=== PATIENT | female | born 1945 | race Caucasian/White ===

== ENCOUNTER → 2017-06-12 | Emergency (ER) | payer OTHER ==
[~2017-06-12] VITALS: Ht 167.6 cm; Wt 104.3 kg
[~2017-06-12] MED LIST: ARMOUR THYROID60 M1; AVALIDE 300-12.1 TAB PO; AVAPRO300 MG; AVAPRO300 MG PO; BETAMETHASONE D60 ML; CALAN 240 MG PO; CARdura 4MG TABLET PO; CLONIDINE HCL0.1 M1; FOLIC ACID1 MG PO; HYDRALAZINE HCL25 MG; HYDRALAZINE HCL25 MG PO; HYDROCHLOROTH12.5 M1 PO; LANTUS SOL100 UNIT/1; LASIX20 MG PO; Lantus 1000 U/10 ML SUBCUTANEO; NABUMETONE500 MG PO; NEURONTIN300 MG; Neurontin PO; OMEPRAZOLE40 MG PO; PERCOCET 5/3251 TAB PO; PRE PROTEIN 2030 ML PO; PRORENAL VITAL1 EACH; PROTONIX40 MG PO; VITAMIN B COMPL1 CAP PO; ZOCOR20 MG; ZYLOPRIM100 M1 PO; [UNRECOGNIZED DRUG - OTHER]
== END | disposition home or self-care (01) ==
LOC: ER 18:21
DX: I10 Essential (primary) hypertension (principal); R51 Headache; Z99.2 Dependence on renal dialysis

== ENCOUNTER 2017-06-14 15:35 | Inpatient (IN) | payer OTHER ==
[~2017-06-14] VITALS: Ht 167.6 cm; Wt 104.3 kg
[~2017-06-14 15:35] MED LIST changes: -ARMOUR THYROID60 M1
[2017-06-15] MEDS ORDERED: ARMOUR THYROID60 M1 (10:27)
[2017-06-18] MEDS ORDERED: HYDRALAZINE HCL50 MG PO (14:25)
[2017-06-18] MEDS ORDERED: LABETALOL HCL100 MG PO (14:27)
== END 2017-06-18 16:30 | DRG 304 ==
LOC: ER 15:35 → ICU-2 18:20
PROC: 4A033R1 Measurement of Arterial Saturation, Peripheral, Percutaneous Approach (ICD-10-PCS; principal; 2017-06-14)
PROC: B246ZZZ Ultrasonography of Right and Left Heart (ICD-10-PCS; 2017-06-17)
DX: I16.9 Hypertensive crisis, unspecified (principal); N18.6 End stage renal disease; I12.0 Hypertensive chronic kidney disease with stage 5 chronic kidney disease or end stage renal disease; E11.22 Type 2 diabetes mellitus with diabetic chronic kidney disease; E03.8 Other specified hypothyroidism; L40.8 Other psoriasis

== ENCOUNTER 2017-07-01 18:41 | Inpatient (IN) | payer OTHER ==
[~2017-07-01] VITALS: Ht 172.7 cm; Wt 113.4 kg
[~2017-07-01 18:41] MED LIST changes: +ARMOUR THYROID60 M1; +HYDRALAZINE HCL50 MG PO; +LABETALOL HCL100 MG PO
[2017-07-09] MEDS ORDERED: ZANTAC150 MG PO (12:21)
[2017-07-09] MEDS ORDERED: CARAFATE1 GM PO (12:22)
[2017-07-09] MEDS ORDERED: PROTONIX40 MG PO (12:22)
[2017-07-09] MEDS ORDERED: ZOFRAN4 MG PO (12:23)
[2017-07-09] MEDS ORDERED: GAS RELIEF125 MG PO (12:24)
== END 2017-07-09 16:49 | disposition home or self-care (01) | DRG 193 ==
LOC: ER 18:41 → SEC-K 22:25 → MEDI 22:25
PROC: 4A033R1 Measurement of Arterial Saturation, Peripheral, Percutaneous Approach (ICD-10-PCS; principal; 2017-07-01)
PROC: 3E0F7GC Introduction of Other Therapeutic Substance into Respiratory Tract, Via Natural or Artificial Opening (ICD-10-PCS; 2017-07-01)
PROC: BW24ZZZ Computerized Tomography (CT Scan) of Chest and Abdomen (ICD-10-PCS; 2017-07-02)
PROC: 4A12X4Z Monitoring of Cardiac Electrical Activity, External Approach (ICD-10-PCS; 2017-07-02)
PROC: 5A1D70Z Performance of Urinary Filtration, Intermittent, Less than 6 Hours Per Day (ICD-10-PCS; 2017-07-04)
DX: J18.9 Pneumonia, unspecified organism (principal); N18.6 End stage renal disease; I12.0 Hypertensive chronic kidney disease with stage 5 chronic kidney disease or end stage renal disease; I16.9 Hypertensive crisis, unspecified; J90 Pleural effusion, not elsewhere classified; B37.0 Candidal stomatitis; R09.02 Hypoxemia; E11.22 Type 2 diabetes mellitus with diabetic chronic kidney disease; Z99.2 Dependence on renal dialysis; E03.8 Other specified hypothyroidism

== ENCOUNTER 2017-09-24 07:49 | Emergency (ER) | payer OTHER ==
[~2017-09-24] VITALS: Ht 157.5 cm; Wt 99.8 kg
[~2017-09-24 07:49] MED LIST changes: +CARAFATE1 GM PO; +GAS RELIEF125 MG PO; +ZANTAC150 MG PO; +ZOFRAN4 MG PO
== END 2017-09-24 15:47 | disposition home or self-care (01) ==
LOC: ER 07:49
DX: R10.11 Right upper quadrant pain (principal)

== ENCOUNTER 2017-09-27 13:55 | Outpatient (CLI) | payer OTHER | END 2017-09-27 13:56 | disposition home or self-care (01) | LOC: RAD 13:55 | DX: M54.6 Pain in thoracic spine (principal) ==

== ENCOUNTER 2018-03-17 03:55 | Inpatient (IN) | payer OTHER ==
[~2018-03-17] VITALS: Ht 167.6 cm; Wt 97.5 kg
--- NOTE | 2018-03-17 04:14 | NUR ---
SE RECIBE PTE ALERTA Y ORIENTADA X3 EN AMBULANCIA QUIEN REFIERE DIFICULTAD RESP DESDE ZACHARY. ES PTE RENAL Y REFIERE LE [facility]. PTE REFIERE NO PADECE DE ASMA O COPD, PTE SATURANDO 93% Y BP MANUAL 230/100. SE LE REALIZA EKG Y SE PRESENTA AL DR CHOWDHURY. PTE SE UBICA EN CAMA ASMA UNI
--- NOTE | 2018-03-17 05:06 | NUR ---
PACIENTE ALERTA Y ORIENTADA X3. EN CAMA EN POSICION SEMI-SENTADA CON BARANDAS ELEVADAS Y INTERCOM ACCESIBLE. MANEJADA POR MIS. [place] QUIEN ORIENTA A PACIENTE SOBRE PROCEDIMIENTO A REALIZAR Y REFIERE ENTENDER. REALIZA MUESTRAS DE LABORATORIO BAJO MEDIDAS ASEPTCAS. CANALIZACION PATENTE Y ANJU DE EDEMA Y ERITEMA. PENDIENTE PLACA PORTABLE. SE NOTIFICO A PERSONAL DE TERAPIA SOBRE LAS MISMA.
[2018-03-19] MEDS ORDERED: AVAPRO300 MG PO (16:09)
[2018-03-19] MEDS ORDERED: LABETALOL HCL100 MG PO (16:09)
[2018-03-19] MEDS ORDERED: ALBUTEROL2.5 MG/3 M IH (16:09)
[2018-03-19] MEDS ORDERED: CLONIDINE HCL0.1 MG PO (16:10)
[2018-03-19] MEDS ORDERED: HYDRALAZINE HCL50 MG PO (16:10)
[2018-03-19] MEDS ORDERED: NeurRONTin 400MG CAP PO (16:10)
[2018-03-19] MEDS ORDERED: Tussi-Organidin Dm-S PO (16:11)
[2018-03-19] MEDS ORDERED: ARMOUR THYROID60 M1 PO (16:12)
[2018-03-19] MEDS ORDERED: LANTUS SOL100 UNIT/1 SUBCUTANEO (16:15)
[2018-03-19] MEDS ORDERED: BETAMETHASONE V60 ML TOP (16:17)
== END 2018-03-19 17:00 | disposition home or self-care (01) | DRG 683 ==
LOC: ER 03:55 → MEDJ 14:10 → SEC-K 14:10 → MEDJ 17:16
PROVIDERS: ADMIT Internal Medicine
PROC: 4A033R1 Measurement of Arterial Saturation, Peripheral, Percutaneous Approach (ICD-10-PCS; principal; 2018-03-17)
PROC: 3E0F7GC Introduction of Other Therapeutic Substance into Respiratory Tract, Via Natural or Artificial Opening (ICD-10-PCS; 2018-03-17)
PROC: 5A1D70Z Performance of Urinary Filtration, Intermittent, Less than 6 Hours Per Day (ICD-10-PCS; 2018-03-17)
PROC: 5A1D70Z Performance of Urinary Filtration, Intermittent, Less than 6 Hours Per Day (ICD-10-PCS; 2018-03-18)
DX: N17.8 Other acute kidney failure (principal); T82.49XA Other complication of vascular dialysis catheter, initial encounter; I13.2 Hypertensive heart and chronic kidney disease with heart failure and with stage 5 chronic kidney disease, or end stage renal disease; E87.2 Acidosis; N18.6 End stage renal disease; Z99.2 Dependence on renal dialysis; I50.89 Other heart failure; R09.02 Hypoxemia; E03.8 Other specified hypothyroidism; E11.9 Type 2 diabetes mellitus without complications

== ENCOUNTER 2018-08-16 12:08 | Inpatient (IN) | payer OTHER ==
[~2018-08-16] VITALS: Ht 165.1 cm; Wt 99.8 kg
[~2018-08-16 12:08] MED LIST changes: +ALBUTEROL2.5 MG/3 M IH; +ARMOUR THYROID60 M1 PO; +BETAMETHASONE V60 ML TOP; +CLONIDINE HCL0.1 MG PO; +LANTUS SOL100 UNIT/1 SUBCUTANEO; +NeurRONTin 400MG CAP PO; +Tussi-Organidin Dm-S PO
--- NOTE | 2018-08-16 12:31 | NUR ---
SE RECIBE PACIENTE EN COMPANIA DE PERSONAL DE EMERGENCIAS MEDICAS DEL CENTRO DE DIALISIS LOS PASEOS. REFIEREN QUE NO LA DIALIZARON PORQUE LA PACIENTE TENIA LA HGB EN 8 POR CBC DEL SABADO. PTE PRESENTA FATIGA Y DEBILIDAD.
--- NOTE | 2018-08-16 13:35 | NUR ---
MRS SMITH ORIENTA A PT SOBRE ORDENES MEDICAS, LA CUAL REFIERE ENTENDER. LE CANALIZA Y EXTRAE MUESTRAS UTILIZANDO MEDIDAS ASEPTICAS PT TOLERA.
--- NOTE | 2018-08-16 15:38 | NUR ---
SE RECIBE PTE ALERTA Y ORIENTADA X 3 ESFERAS, EN CAMA NIVEL MAS BAJO, CHONG DE IDENTIFICACION Y BARANDAS ELEVADAS POR PRECAUCION. SE OBSERVA CON BUEN PATRON RESPIRATORIO Y PIEL TIBIA AL TACTO. H/L PATENTE Y ANJU DE EDEMA O ERITEMA. PTE PENDIENTE A CONSULTA CON DR MANCERA Y RENALDO. PENDIENTE A TRANSFUNDIR 2U DE PRBC EN DIALISIS. SE MANTIENE BAJO OBSERVACION.
== END 2018-08-20 21:15 | disposition home or self-care (01) | DRG 291 ==
LOC: ER 12:08 → ICU 17:26 → MEDJ 08-19 19:56
PROVIDERS: ADMIT Internal Medicine
PROC: 5A09357 Assistance with Respiratory Ventilation, Less than 24 Consecutive Hours, Continuous Positive Airway Pressure (ICD-10-PCS; principal; 2018-08-16)
PROC: 30233N1 Transfusion of Nonautologous Red Blood Cells into Peripheral Vein, Percutaneous Approach (ICD-10-PCS; 2018-08-16)
PROC: 4A033R1 Measurement of Arterial Saturation, Peripheral, Percutaneous Approach (ICD-10-PCS; 2018-08-16)
PROC: 3E0F7GC Introduction of Other Therapeutic Substance into Respiratory Tract, Via Natural or Artificial Opening (ICD-10-PCS; 2018-08-16)
PROC: B246ZZZ Ultrasonography of Right and Left Heart (ICD-10-PCS; 2018-08-16)
PROC: 5A1D70Z Performance of Urinary Filtration, Intermittent, Less than 6 Hours Per Day (ICD-10-PCS; 2018-08-17)
PROC: 4A12X4Z Monitoring of Cardiac Electrical Activity, External Approach (ICD-10-PCS; 2018-08-19)
DX: I13.2 Hypertensive heart and chronic kidney disease with heart failure and with stage 5 chronic kidney disease, or end stage renal disease (principal); I50.31 Acute diastolic (congestive) heart failure; N18.6 End stage renal disease; N17.8 Other acute kidney failure; E87.1 Hypo-osmolality and hyponatremia; E87.2 Acidosis; E87.5 Hyperkalemia; Z88.0 Allergy status to penicillin; R09.02 Hypoxemia; Z79.4 Long term (current) use of insulin; E11.22 Type 2 diabetes mellitus with diabetic chronic kidney disease; Z99.2 Dependence on renal dialysis; D63.1 Anemia in chronic kidney disease; E66.01 Morbid (severe) obesity due to excess calories; E03.8 Other specified hypothyroidism

== ENCOUNTER 2018-09-27 14:01 | Emergency (ER) | payer OTHER ==
[~2018-09-27] VITALS: Ht 157.5 cm; Wt 97.5 kg
== END 2018-09-27 20:01 | disposition home or self-care (01) ==
LOC: ER 14:01
DX: D64.89 Other specified anemias (principal)

== ENCOUNTER 2018-11-09 12:53 | Outpatient (CLI) | payer OTHER | END 2018-11-09 15:41 | disposition home or self-care (01) | LOC: SONOGRAMA 12:53 → MAMO-SONO 13:15 → SONOGRAMA 15:41 | DX: E21.2 Other hyperparathyroidism (principal); E04.2 Nontoxic multinodular goiter ==

== ENCOUNTER 2018-11-22 12:03 | Inpatient (IN) | payer OTHER ==
[~2018-11-22] VITALS: Ht 162.6 cm; Wt 56.2 kg
[2018-12-09] MEDS ORDERED: CIPRO500 MG PO (15:25)
== END 2018-12-09 15:51 | disposition home or self-care (01) | DRG 314 ==
LOC: ER 12:03 → MEDJ 14:43
PROVIDERS: Radiology Vascular & Interventional Radiology; ADMIT Internal Medicine
PROC: 3E0F7GC Introduction of Other Therapeutic Substance into Respiratory Tract, Via Natural or Artificial Opening (ICD-10-PCS; 2018-11-22)
PROC: 05HB33Z Insertion of Infusion Device into Right Basilic Vein, Percutaneous Approach (ICD-10-PCS; 2018-11-23)
PROC: B51MZZA Fluoroscopy of Right Upper Extremity Veins, Guidance (ICD-10-PCS; 2018-11-23)
PROC: 5A1D70Z Performance of Urinary Filtration, Intermittent, Less than 6 Hours Per Day (ICD-10-PCS; 2018-11-23)
PROC: 03PY33Z Removal of Infusion Device from Upper Artery, Percutaneous Approach (ICD-10-PCS; principal; 2018-11-23 18:00)
PROC: BW28ZZZ Computerized Tomography (CT Scan) of Head (ICD-10-PCS; 2018-11-29)
PROC: B246ZZZ Ultrasonography of Right and Left Heart (ICD-10-PCS; 2018-11-30)
PROC: 3E0F7GC Introduction of Other Therapeutic Substance into Respiratory Tract, Via Natural or Artificial Opening (ICD-10-PCS; 2018-11-30)
PROC: BB24ZZZ Computerized Tomography (CT Scan) of Bilateral Lungs (ICD-10-PCS; 2018-12-05)
PROC: 02PA33Z Removal of Infusion Device from Heart, Percutaneous Approach (ICD-10-PCS; 2018-12-07)
PROC: 05HM33Z Insertion of Infusion Device into Right Internal Jugular Vein, Percutaneous Approach (ICD-10-PCS; 2018-12-07)
PROC: B513ZZA Fluoroscopy of Right Jugular Veins, Guidance (ICD-10-PCS; 2018-12-07)
DX: T80.211A Bloodstream infection due to central venous catheter, initial encounter (principal); N18.6 End stage renal disease; J16.8 Pneumonia due to other specified infectious organisms; G93.41 Metabolic encephalopathy; A41.52 Sepsis due to Pseudomonas; A41.1 Sepsis due to other specified staphylococcus; T82.49XA Other complication of vascular dialysis catheter, initial encounter; I13.2 Hypertensive heart and chronic kidney disease with heart failure and with stage 5 chronic kidney disease, or end stage renal disease; I50.20 Unspecified systolic (congestive) heart failure; N17.8 Other acute kidney failure; E87.2 Acidosis; E87.1 Hypo-osmolality and hyponatremia; T80.29XA Infection following other infusion, transfusion and therapeutic injection, initial encounter; Z99.2 Dependence on renal dialysis; L40.8 Other psoriasis; E03.8 Other specified hypothyroidism; E87.5 Hyperkalemia; E11.65 Type 2 diabetes mellitus with hyperglycemia; D63.1 Anemia in chronic kidney disease; G58.8 Other specified mononeuropathies; B96.5 Pseudomonas (aeruginosa) (mallei) (pseudomallei) as the cause of diseases classified elsewhere; B95.61 Methicillin susceptible Staphylococcus aureus infection as the cause of diseases classified elsewhere; B95.7 Other staphylococcus as the cause of diseases classified elsewhere

== ENCOUNTER 2019-04-25 12:51 | Inpatient (IN) | payer OTHER ==
[~2019-04-25] VITALS: Ht 165.1 cm; Wt 83.9 kg
[~2019-04-25 12:51] MED LIST changes: +CIPRO500 MG PO
== END 2019-04-26 13:58 | disposition home or self-care (01) | DRG 682 ==
LOC: ER 12:51 → SEC-K 19:10 → MEDI 04-26 11:28 → MEDJ 04-26 11:28 → SEC-K 04-26 12:10
PROVIDERS: ADMIT Internal Medicine
PROC: 30233N1 Transfusion of Nonautologous Red Blood Cells into Peripheral Vein, Percutaneous Approach (ICD-10-PCS; principal; 2019-04-25)
PROC: 5A1D70Z Performance of Urinary Filtration, Intermittent, Less than 6 Hours Per Day (ICD-10-PCS; 2019-04-26)
DX: I13.11 Hypertensive heart and chronic kidney disease without heart failure, with stage 5 chronic kidney disease, or end stage renal disease (principal); N18.6 End stage renal disease; Z99.2 Dependence on renal dialysis; D63.1 Anemia in chronic kidney disease

== ENCOUNTER 2019-05-16 17:22 | Inpatient (IN) | payer OTHER ==
[~2019-05-16] VITALS: Ht 152.4 cm; Wt 65.8 kg
--- NOTE | 2019-05-16 17:28 | NUR ---
SE RECIBE PACIENTE EN AMBULANCIA REFIERE DIFICULTAD RESPIRATORIA LUEGO DE DIALISIS SE RASHID S/V YSE UBIAC EN AREA DE OBSERVACION
--- NOTE | 2019-05-16 17:40 | NUR ---
SE ORIENTA A PTE SOBRE PROCESO DE PETR DE MUESTRAS DE LAB Y VENOPUNCION. PTE REFIERE ENTENDER INF ROBERT. AREA DE VENOPUNCION SE VLADISLAV ANJU DE EDEMA Y ENROJECIMIENTO. PTE PEND A PETR DE ABG POR PERSONAL DE TERAPIA RESPIRATORIA.
--- NOTE | 2019-05-16 19:33 | NUR ---
PACIENTE Y FAMILIAR INDICA QUE PACIENTE NO ORINA SE LE DICE PARA CATATERIZAR Y REHUSAN. NO SE LOGRA BRIAN MUESTRA DE ORINA.
[2019-05-19] MEDS ORDERED: PROTONIX40 MG PO (13:22)
[2019-05-19] MEDS ORDERED: CARAFATE1 GM/10 ML PO (13:24)
[2019-05-19] MEDS ORDERED: TEGRETOL XR100 MG PO (13:26)
[2019-05-19] MEDS ORDERED: MUCINEX D ER 61 EACH PO (13:26)
[2019-05-19] MEDS ORDERED: BUTALBIT-ACETA1 EACH PO (13:38)
== END 2019-05-19 13:57 | disposition home or self-care (01) | DRG 377 ==
LOC: ER 17:22 → MEDI 20:30
PROVIDERS: ADMIT Internal Medicine
PROC: 30233N1 Transfusion of Nonautologous Red Blood Cells into Peripheral Vein, Percutaneous Approach (ICD-10-PCS; 2019-05-16)
PROC: BW2100Z Computerized Tomography (CT Scan) of Abdomen and Pelvis using High Osmolar Contrast, Unenhanced and Enhanced (ICD-10-PCS; 2019-05-17)
PROC: 4A033R1 Measurement of Arterial Saturation, Peripheral, Percutaneous Approach (ICD-10-PCS; 2019-05-17)
PROC: 0DJ08ZZ Inspection of Upper Intestinal Tract, Via Natural or Artificial Opening Endoscopic (ICD-10-PCS; principal; 2019-05-19)
DX: K26.0 Acute duodenal ulcer with hemorrhage (principal); N18.6 End stage renal disease; I12.0 Hypertensive chronic kidney disease with stage 5 chronic kidney disease or end stage renal disease; E87.1 Hypo-osmolality and hyponatremia; N17.8 Other acute kidney failure; E11.22 Type 2 diabetes mellitus with diabetic chronic kidney disease; K92.1 Melena; K29.00 Acute gastritis without bleeding; K57.30 Diverticulosis of large intestine without perforation or abscess without bleeding; D63.1 Anemia in chronic kidney disease; Z99.2 Dependence on renal dialysis; Z79.4 Long term (current) use of insulin

== ENCOUNTER 2019-06-12 07:52 | Outpatient (CLI) | payer OTHER ==
[~2019-06-12 07:52] MED LIST changes: +BUTALBIT-ACETA1 EACH PO; +CARAFATE1 GM/10 ML PO; +MUCINEX D ER 61 EACH PO; +TEGRETOL XR100 MG PO
== END 2019-06-12 08:30 | disposition home or self-care (01) ==
LOC: NUCLEAR 07:52
DX: E05.80 Other thyrotoxicosis without thyrotoxic crisis or storm (principal)
CPT/HCPCS: 78072; A9500

== ENCOUNTER 2019-09-24 14:16 | Inpatient (IN) | payer OTHER ==
[~2019-09-24] VITALS: Ht 162.6 cm; Wt 26.3 kg
[2019-09-24] MEDS ORDERED: ZOLOFT25 MG PO (14:44)
[2019-09-24] MEDS ORDERED: CARVEDILOL6.25 MG (14:44)
[2019-09-24] MEDS ORDERED: AVAPRO300 MG PO (14:45)
== END 2019-10-04 19:20 | disposition home or self-care (01) | DRG 189 ==
LOC: ER 14:16 → ICU-2 19:44 → MEDI 09-30 14:51 → MEDJ 09-30 14:51
PROVIDERS: ADMIT Internal Medicine; ATTEND Internal Medicine
PROC: 5A1D70Z Performance of Urinary Filtration, Intermittent, Less than 6 Hours Per Day (ICD-10-PCS; principal; 2019-09-24)
PROC: 4A033R1 Measurement of Arterial Saturation, Peripheral, Percutaneous Approach (ICD-10-PCS; 2019-09-24)
PROC: 3E0F7GC Introduction of Other Therapeutic Substance into Respiratory Tract, Via Natural or Artificial Opening (ICD-10-PCS; 2019-09-25)
PROC: B246ZZZ Ultrasonography of Right and Left Heart (ICD-10-PCS; 2019-09-28)
PROC: 4A12X4Z Monitoring of Cardiac Electrical Activity, External Approach (ICD-10-PCS; 2019-09-30)
DX: J81.0 Acute pulmonary edema (principal); N18.6 End stage renal disease; E87.1 Hypo-osmolality and hyponatremia; E87.6 Hypokalemia; E11.9 Type 2 diabetes mellitus without complications; E03.8 Other specified hypothyroidism; J44.9 Chronic obstructive pulmonary disease, unspecified; L40.8 Other psoriasis; R09.02 Hypoxemia; D64.9 Anemia, unspecified; I16.0 Hypertensive urgency; Z99.2 Dependence on renal dialysis; Z20.828 Contact with and (suspected) exposure to other viral communicable diseases; R00.0 Tachycardia, unspecified

== ENCOUNTER 2019-10-16 01:52 | Inpatient (IN) | payer OTHER ==
[~2019-10-16] VITALS: Ht 162.6 cm; Wt 68.0 kg
[~2019-10-16 01:52] MED LIST changes: +CARVEDILOL6.25 MG; +ZOLOFT25 MG PO
== END 2019-10-17 16:40 | disposition expired | DRG 177 ==
LOC: ER 01:52 → SEC-K 10:46 → SURH 10-17 14:56
PROVIDERS: ADMIT Internal Medicine; ATTEND Internal Medicine
PROC: 5A09357 Assistance with Respiratory Ventilation, Less than 24 Consecutive Hours, Continuous Positive Airway Pressure (ICD-10-PCS; principal; 2019-10-16)
PROC: BB24ZZZ Computerized Tomography (CT Scan) of Bilateral Lungs (ICD-10-PCS; 2019-10-16)
PROC: 4A033R1 Measurement of Arterial Saturation, Peripheral, Percutaneous Approach (ICD-10-PCS; 2019-10-16)
PROC: 4A12X4Z Monitoring of Cardiac Electrical Activity, External Approach (ICD-10-PCS; 2019-10-16)
PROC: 8E0ZXY6 Isolation (ICD-10-PCS; 2019-10-16)
PROC: 3E0F7GC Introduction of Other Therapeutic Substance into Respiratory Tract, Via Natural or Artificial Opening (ICD-10-PCS; 2019-10-17)
DX: J69.8 Pneumonitis due to inhalation of other solids and liquids (principal); A41.51 Sepsis due to Escherichia coli [E. coli]; R65.20 Severe sepsis without septic shock; N18.6 End stage renal disease; I46.9 Cardiac arrest, cause unspecified; N17.9 Acute kidney failure, unspecified; N39.0 Urinary tract infection, site not specified; I12.0 Hypertensive chronic kidney disease with stage 5 chronic kidney disease or end stage renal disease; J90 Pleural effusion, not elsewhere classified; J15.5 Pneumonia due to Escherichia coli; B96.29 Other Escherichia coli [E. coli] as the cause of diseases classified elsewhere; R50.9 Fever, unspecified; D64.9 Anemia, unspecified; E11.22 Type 2 diabetes mellitus with diabetic chronic kidney disease; E11.65 Type 2 diabetes mellitus with hyperglycemia; L40.9 Psoriasis, unspecified; Z99.2 Dependence on renal dialysis; Z79.4 Long term (current) use of insulin; Z03.818 Encounter for observation for suspected exposure to other biological agents ruled out